=== PATIENT | female | born 1995 | race African-American/Black ===

== ENCOUNTER 2021-09-19 07:02 | Emergency (ER) | payer BC ==
[~2021-09-19] VITALS: Ht 154.9 cm; Wt 63.5 kg
--- NOTE | 2021-09-19 07:17 | NUR ---
PT BIBS C/O LEFT SHOULDER PAIN [id number]. PATIENT ALERT AND ORIENTED X3. AMBULATORY WITH NON LABORED BREATHING IN BED 01 ON MONITOR AWAITING MD ROLLINS.
[2021-09-19] MEDS ORDERED: KETOROLAC TROMETHAMINE INJ 30 MG/ML VIAL IM ONE (07:30)
[2021-09-19] MEDS ORDERED: KETOROLAC TROMETHAMINE 15 MG/ML VIAL ONE (07:32)
--- NOTE | 2021-09-19 07:34 | NUR ---
X RAY AT BEDSIDE
[2021-09-19] MEDS ORDERED: CYCL5TAB PO (08:16)
[2021-09-19] MEDS ORDERED: IBUP-1955 PO (08:16)
--- NOTE | 2021-09-19 08:26 | NUR ---
Patient discharged to home in stable condition. Written and verbal after care instructions given. Patient verbalizes understanding of instruction.
[2021-09-19 08:28] VITALS: BP 115/88
== END 2021-09-19 08:32 | disposition home or self-care (01) ==
LOC: ER 07:07
DX: S46.912A Strain of unspecified muscle, fascia and tendon at shoulder and upper arm level, left arm, initial encounter (principal); Z60.2 Problems related to living alone; X50.0XXA Overexertion from strenuous movement or load, initial encounter; Y93.89 Activity, other specified; Y92.512 Supermarket, store or market as the place of occurrence of the external cause; Y99.0 Civilian activity done for income or pay
CPT/HCPCS: 73030; 96372; 99283; J1885